=== PATIENT | female | born 1980 | race African-American/Black ===

== ENCOUNTER 2024-06-25 13:32 | Emergency (ER) | payer BC ==
[~2024-06-25] VITALS: Ht 165.1 cm; Wt 108.4 kg
[2024-06-25 13:41] VITALS: BP 134/72; PULSE 86; RESP 24; TEMP 97.5; O2SAT 99
[2024-06-25] MEDS: KETOROLAC 30 MG/ML VIAL IM ONE (14:17)
== END 2024-06-25 15:18 | disposition home or self-care (01) ==
LOC: MED 13:32
DX: S90.01XA Contusion of right ankle, initial encounter (principal); W22.8XXA Striking against or struck by other objects, initial encounter; Y93.89 Activity, other specified; Y92.89 Other specified places as the place of occurrence of the external cause; Y99.8 Other external cause status
CPT/HCPCS: 73610; 96372; 99283; J1885